=== PATIENT | male | born 1945 | race Caucasian/White ===

== ENCOUNTER 2018-01-09 16:16 | Emergency (ER) | payer OTHER ==
[2018-01-09] MEDS ORDERED: BACIGUENT PACKET TP ONE (17:05)
--- NOTE | 2018-01-09 17:12 | ERPHSYRPT ---
- History of Present Illness Time Seen by Provider: 01/09/18 16:55 Source: patient Exam Limitations: no limitations Patient Subjective Stated Complaint: states having drainage from rectal area with some bleeding since Triage Nursing Assessment: ambulated to room per self. skin w/d, color normal, resp easy. large red raised noted around rectum with copius amts of dark red drainage noted. Physician History: 72-year-old white male arrives with complaint of perirectal pain and drainage. Patient states 3 days of perirectal pain and swelling today draining purulent fluid. Past medical history includes cataracts, arrhythmia, hyperlipidemia, PTSD. Past surgical history includes right knee replacement left hip replacement Timing/Duration: day(s) (3 days) Severity: moderate Modifying Factors: Improves With: nothing Associated Symptoms: No nausea, No vomiting, No abdominal pain, No shortness of breath, No heartburn, No diaphoresis, No cough, No chills, No chest pain, No fever, No headaches, No loss of appetite, No malaise, No rash, No syncope, No seizure, No weakness Allergies/Adverse Reactions: No Known Drug Allergies Allergy (Unverified 01/09/18 16:44) Hx Tetanus, Diphtheria Vaccination/Date Given: No Hx Influenza Vaccination/Date Given: No Hx Pneumococcal Vaccination/Date Given: Yes - Review of Systems Constitutional: No Fever, No Chills Eyes: No Symptoms Ears, Nose, & Throat: No Symptoms Respiratory: No Cough, No Dyspnea Cardiac: No Chest Pain, No Edema, No Syncope Abdominal/Gastrointestinal: Other (perirectal pain and swelling with drainage), No Abdominal Pain, No Nausea, No Vomiting, No Diarrhea Genitourinary Symptoms: No Dysuria Musculoskeletal: No Back Pain, No Neck Pain Skin: Other (perirectal pain and swelling with drainage) Neurological: No Dizziness, No Focal Weakness, No Sensory Changes Psychological: No Symptoms Endocrine: No Symptoms All Other Systems: Reviewed and Negative - Past Medical History Pertinent Past Medical History: Yes ENT History: Cataracts Cardiac History: Arrhythmia, High Cholesterol Psycho-Social History: Other Other Medical History: PTSD - Past Surgical History Past Surgical History: Yes Musculoskeletal: Joint Replacement Other Surgical History: knee replacement - Social History Smoking Status: Never smoker Exposure to second hand smoke: No Drug Use: none Patient Lives Alone: No - Nursing Vital Signs Nursing Vital Signs: Initial Vital Signs Temperature 98.4 F 01/09/18 16:23 Pulse Rate 82 01/09/18 16:23 Respiratory Rate 16 01/09/18 16:23 Blood Pressure 122/75 01/09/18 16:23 O2 Sat by Pulse Oximetry 96 01/09/18 16:23 Pain Scale Pain Intensity 6 - Physical Exam General Appearance: mild distress Eye Exam: PERRL/EOMI, eyes nml inspection Ears, Nose, Throat Exam: normal ENT inspection, TMs normal, pharynx normal, moist mucous membranes Neck Exam: normal inspection, non-tender, supple, full range of motion Respiratory Exam: normal breath sounds, lungs clear, No respiratory distress Cardiovascular Exam: regular rate/rhythm, normal heart sounds, normal peripheral pulses Gastrointestinal/Abdomen Exam: soft, normal bowel sounds, No tenderness, No mass Rectal Exam: other (Patient with a draining abscess approximately 3 cm to the left and just lateral to the rectum purulent material expressing from Center hole ) Back Exam: normal inspection, normal range of motion, No CVA tenderness, No vertebral tenderness Extremity Exam: normal inspection, normal range of motion, pelvis stable Neurologic Exam: alert, oriented x 3, cooperative, normal mood/affect, nml cerebellar function, nml station & gait, sensation nml, No motor deficits Skin Exam: warm, dry, other (draining abscess 3 cm left perirectal area), No rash SpO2 Interpretation: normal (96%) SpO2: 96 Oxygen Delivery: Room Air - Course Nursing assessment & vital signs reviewed: Yes Ordered Tests: Active Orders 24 hr Category Date Time Status Wound Care STAT Care 01/09/18 17:05 Active CULTURE,WOUND Stat Lab 01/09/18 17:14 Ordered Medication Summary Discontinued Medications Generic Name Dose Route Start Last Admin Trade Name Freq PRN Reason Stop Dose Admin Bacitracin Zinc 0.9 gm 01/09/18 17:05 01/09/18 17:17 Baciguent Packet TP 01/09/18 17:06 Not Given STAT ONE - Progress Progress: improved Progress Note: 01/09/18 17:10 This is a 72-year-old white male who complains of perirectal pain for 3 days he arrives now with drainage of a brownish purulent material from a central hole which is approximately 0.7 cm in the center of a 3 cm abscess. Patient is on blood thinners she's not sure which ones. Patient is having markedly drainage from the area Drainages facilitated by gentle pressure. . Will not incise the area at this time as it is already spontaneously draining. Will have nurse clean the area apply bacitracin patient is to use frequent sitz baths. Will plan on placing patient on pain medication and antibiotics. Patient will need to find out which medications he is on at home prior to prescribing meds. 01/09/18 17:14 the area has been cleaned it does not need to be incised at this time it has spontaneously drained Patient to go home and find out his medication list Will prescribe appropriate antibiotics and pain meedications when patient"s med list is available. 01/09/18 19:12 tho patient was given a prescription for DS one orally twicew a day for 10 days , also for norco 5/325 one orally every 4-6 hours as needed for pain#10 - Departure Time of Disposition: 17:16 Departure Disposition: Home Clinical Impression: perirectal abscess spontaneous drainage Condition: Fair Critical Care Time: No Additional Instructions: Return home. Frequent sitz baths. Return with your medication list.. Follow-up with [facility]. Return for acute distress or for severe symptoms
[2018-01-09 17:28] VITALS: BP 104/70; PULSE 76
[2018-01-09 19:14] VITALS: O2SAT 96
== END 2018-01-09 17:24 | disposition home or self-care (01) ==
LOC: ED 16:16
DX: K61.1 Rectal abscess (principal)
CPT/HCPCS: 99284